=== PATIENT | female | born 1965 | race American Indian/Alaskan Native ===

== ENCOUNTER 2017-12-01 10:34 | Emergency (ER) | payer OTHER ==
[2017-12-01 11:35] VITALS: BP 189/105
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
== END 2017-12-01 14:10 | disposition home or self-care (01) ==
LOC: ED 10:34
DX: M54.5 Low back pain (principal)
CPT/HCPCS: 99282